=== PATIENT | female | born 1975 | race African-American/Black ===

== ENCOUNTER 2019-01-13 16:35 | Emergency (ER) | payer BC ==
[~2019-01-13] VITALS: Ht 154.9 cm; Wt 95.3 kg
[~2019-01-13 16:35] MED LIST: AMOXICILLIN 50500 M1 PO; APAP/CODEINE ELI5 M1 OR; BENADRYL25 MG PO; IBUPROFEN 600600 M1 PO; LISINOPRIL20 MG PO; NEXIUM 40 MG CA40 M1 PO; NOHOMEMEDICATIONS; NORCO 5-325 TA1 EACH PO; PERCOCET 5-3251 EACH PO; PREDNISONE50 MG PO; ZPAK PO; [UNRECOGNIZED DRUG - OTHER]
[2019-01-13 20:56] VITALS: BP 170/91
== END 2019-01-13 20:57 | disposition home or self-care (01) ==
LOC: ER 16:35
DX: S60.812A Abrasion of left wrist, initial encounter (principal); M79.602 Pain in left arm; M54.5 Low back pain; Z98.890 Other specified postprocedural states; V49.40XA Driver injured in collision with unspecified motor vehicles in traffic accident, initial encounter; Y93.89 Activity, other specified; Y92.89 Other specified places as the place of occurrence of the external cause; Y99.8 Other external cause status

== ENCOUNTER 2019-05-27 16:56 | Emergency (ER) | payer BC ==
[~2019-05-27] VITALS: Ht 157.5 cm; Wt 97.1 kg
[2019-05-27] MEDS ORDERED: TESSALON PERLE100 MG PO (17:50)
[2019-05-27] MEDS ORDERED: IBUPROFEN 800800 M1 PO (17:50)
[2019-05-27 18:12] VITALS: BP 121/72
== END 2019-05-27 18:12 | disposition home or self-care (01) ==
LOC: ER 16:56
DX: J11.1 Influenza due to unidentified influenza virus with other respiratory manifestations (principal); Z98.890 Other specified postprocedural states

== ENCOUNTER 2020-04-10 23:36 | Emergency (ER) | payer BC ==
[~2020-04-10] VITALS: Ht 157.5 cm; Wt 95.3 kg
[~2020-04-10 23:36] MED LIST changes: +IBUPROFEN 800800 M1 PO; +TESSALON PERLE100 MG PO
[2020-04-10] MEDS ORDERED: AMLODIPINE-OLM1 EAC3 PO (23:48)
[2020-04-11 03:34] VITALS: BP 125/60
== END 2020-04-11 03:35 | disposition home or self-care (01) ==
LOC: ER 23:36
DX: R51.9 Headache, unspecified (principal); I10 Essential (primary) hypertension; Z98.890 Other specified postprocedural states; Z79.899 Other long term (current) drug therapy